=== PATIENT | male | born 1980 ===

== ENCOUNTER 2020-12-30 09:56 | Emergency (ER) | payer OTHER ==
[~2020-12-30] VITALS: Ht 177.8 cm; Wt 95.3 kg
[2020-12-30] MEDS ORDERED: CRESTOR5 MG (10:01)
[2020-12-30] MEDS ORDERED: CIPRO500 MG PO (11:55)
== END 2020-12-30 13:04 | disposition home or self-care (01) ==
LOC: ER 09:56
DX: R30.0 Dysuria (principal); A63.8 Other specified predominantly sexually transmitted diseases